=== PATIENT | female | born 1970 | race Caucasian/White ===

== ENCOUNTER 2021-06-16 08:31 | Day surgery (SDC) | payer BC ==
[2021-06-11 08:27] LABS: BHCG - Serum Negative (NEGATIVE); Pregs Control Background? CLEAR/WHITE (CLR/WHITE); Pregs Control Bar Appear? YES (CONTROL BAR)
[2021-06-11 08:55] LABS: Hemoglobin 13.7 g/dL (12.0-15.5); Mean Corpuscular HGB CONC 33.7 g/dL (32.0-36.0); Mean Corpuscular Hemoglobin 28.9 pg (27.0-33.0); Mean Corpuscular Volume 85.7 fl (81.6-98.3); Mean Platelet Volume 9.7 fl (7.4-10.4); Platelet Count 262 10x3/uL (150-450); RBC Distribution Width 12.7 % (11.5-14.5); Red Blood Cell (RBC) Count 4.74 10x6/uL (3.90-5.03)
[2021-06-11 10:21] VITALS: BMI 46.0
[2021-06-11 20:05] LABS: SARS-CoV-2 PCR by NAA Not Detected (NotDetected)
[2021-06-16] MEDS ORDERED: Gabapentin 300 MG CAP ONE (08:53)
[2021-06-16] MEDS ORDERED: Famotidine/PF 20 mg/2ml Vial ONE (08:54)
[2021-06-16] MEDS ORDERED: Lidocaine 1% MPF 2 ML VIAL ONE (08:54)
[2021-06-16] MEDS ORDERED: CeleCOXIB 100 MG CAP ONE (08:54)
[2021-06-16] MEDS ORDERED: EPINEPHrine 1 MG/ML AMP ONE (10:25)
[2021-06-16] MEDS ORDERED: Bupivacaine PF 0.5% 30 ML VIAL ONE (10:25)
[2021-06-16] MEDS ORDERED: Midazolam HCl 2 mg/2 ml Vial ONE (10:31)
[2021-06-16] MEDS ORDERED: PROPOFOL 20 ML ONE (10:31)
[2021-06-16] MEDS ORDERED: Fentanyl 250 MCG/5 ML VIAL ONE (10:31)
[2021-06-16] MEDS ORDERED: Dexamethasone 4 mg/ml Vial ONE (10:32)
[2021-06-16] MEDS ORDERED: Rocuronium Bromide 10 MG/ML (10ML VIAL) ONE (10:32)
[2021-06-16] MEDS ORDERED: Ondansetron PF 4 MG/2 ML Vial ONE (10:32)
[2021-06-16] MEDS ORDERED: Lidocaine 1% PF 5 ML VIAL ONE (10:32)
[2021-06-16] MEDS ORDERED: Glycopyrrolate 0.2 MG/ML 5 ML SYRINGE ONE (10:33)
[2021-06-16] MEDS ORDERED: Ketorolac Tromethamine 30 MG/ML VIAL ONE (10:33)
[2021-06-16] MEDS ORDERED: ceFAZolin 2 GM/Dextrose 50 ML IVPB ONE (10:48)
== END 2021-06-16 17:00 | disposition home or self-care (01) ==
LOC: CSHSDC 08:31
PROVIDERS: ATTEND Obstetrics & Gynecology
PROC: 0UT74ZZ Resection of Bilateral Fallopian Tubes, Percutaneous Endoscopic Approach (ICD-10-PCS; principal; 2021-06-16)
PROC: 0UT94ZZ Resection of Uterus, Percutaneous Endoscopic Approach (ICD-10-PCS; principal; 2021-06-16)
PROC: 0UT24ZZ Resection of Bilateral Ovaries, Percutaneous Endoscopic Approach (ICD-10-PCS; principal; 2021-06-16)
DX: Z40.02 Encounter for prophylactic removal of ovary(s) (principal); N88.8 Other specified noninflammatory disorders of cervix uteri; N80.0 Endometriosis of uterus; C50.911 Malignant neoplasm of unspecified site of right female breast; E66.9 Obesity, unspecified; Z68.42 Body mass index [BMI] 45.0-49.9, adult; Z17.0 Estrogen receptor positive status [ER+]; Z79.810 Long term (current) use of selective estrogen receptor modulators (SERMs); Z20.822 Contact with and (suspected) exposure to COVID-19
CPT/HCPCS: 84703; 85027; 86850; 86900; 86901; 88307; J0171; J0690; J1100; J1885; J2250; J2405; J2704; J3010; S0020; S0028; U0003; U0005